=== PATIENT | male | born 1950 | race Caucasian/White ===

== ENCOUNTER 2016-08-23 07:02 | Emergency (ER) | payer MEDICARE, BC ==
[~2016-08-23] VITALS: Ht 165.1 cm; Wt 70.0 kg
[~2016-08-23 07:02] MED LIST: AMLODIPINE5 MG PO; DARVOCET N-100100 - OR; LIPITOR20 MG PO; LIPITOR40 MG OR; LOSARTAN POT100 MG PO; METOPROLOL SUCC50 MG PO; MICARDIS OR; NORCO1 TA1 PO; SERTRALINE HCL100 MG PO; XANAX0.25 MG PO
[2016-08-23 07:37] LABS: HEMATOCRIT 42.9 % (39.0-50.0); HEMOGLOBIN 14.6 g/dl (14.0-18.0); IMMATURE GRANULOCYTES 0.4 % (0.0-1.0); MEAN CELL VOLUME 93.3 fL CALC (80.0-100.0); MEAN CORPUSCULAR HGB 31.7 pG CALC (26.0-32.0); NEUT# 3.07 thou/uL (1.82-7.42); RED BLOOD COUNT 4.6 mill/uL (4.70-6.10); RED CELL DISTRI WIDTH 12.8 % (11.5-15.5)
[2016-08-23] MEDS ORDERED: METOPROLOL50 M1 PO (07:53)
[2016-08-23] MEDS ORDERED: AMLODIPINE5 MG PO (07:53)
[2016-08-23] MEDS ORDERED: LOSARTAN POT100 MG PO (07:53)
[2016-08-23 07:57] LABS: ALBUMIN 4.8 g/dL (3.2-5.0); ALKALINE PHOSPHATASE 75 u/l (38-126); ANION GAP 15 (6-22 (CALC)); BILIRUBIN, TOTAL 0.5 mg/dL (0.0-1.4); BUN 8 mg/dL (8-23); BUN/CREATININE RATIO 10 (12-20 (CALC)); CARBON DIOXIDE 28 mmol/l (22-30); CHLORIDE 104 mmol/l (95-108); CREATININE 0.8 mg/dL (0.7-1.3); GFR > 60 ML/MIN (>=60 (CALC)); GFR FOR AFR.AMER. > 60 ML/MIN (>=60 (CALC)); GLUCOSE 90 mg/dL (82-115); POTASSIUM 4.2 mmol/l (3.5-5.1); SGOT/AST 28 u/l (19-48); SGPT/ALT 40 u/l (11-66); SODIUM 143 mmol/l (137-146); TOTAL PROTEIN 7.9 g/dL (6.3-8.2)
[2016-08-23 08:09] LABS: MYOGLOBIN 34 ng/mL (0 - 121)
[2016-08-23 08:29] VITALS: BP 166/81
== END 2016-08-23 08:35 | disposition home or self-care (01) ==
LOC: ED 07:02
PROVIDERS: Emergency Medicine
DX: I16.0 Hypertensive urgency (principal); R42 Dizziness and giddiness; Z76.0 Encounter for issue of repeat prescription; R94.31 Abnormal electrocardiogram [ECG] [EKG]

== ENCOUNTER 2016-11-18 11:35 | Emergency (ER) | payer MEDICARE, BC ==
[~2016-11-18] VITALS: Ht 165.1 cm; Wt 68.2 kg
[~2016-11-18 11:35] MED LIST changes: +METOPROLOL50 M1 PO
[2016-11-18] MEDS ORDERED: AUGMENTIN875TAB PO (12:05)
[2016-11-18] MEDS ORDERED: MUPIROCIN2 % EX (12:05)
[2016-11-18 12:40] VITALS: BP 151/79
== END 2016-11-18 12:40 | disposition home or self-care (01) ==
LOC: ED 11:35
DX: S61.451A Open bite of right hand, initial encounter (principal); I10 Essential (primary) hypertension; W54.0XXA Bitten by dog, initial encounter; Y92.007 Garden or yard of unspecified non-institutional (private) residence as the place of occurrence of the external cause
CPT/HCPCS: J1335

== ENCOUNTER 2017-04-07 11:21 | Observation (INO) | payer MEDICARE, BC ==
[~2017-04-07] VITALS: Ht 165.1 cm; Wt 62.0 kg
[~2017-04-07 11:21] MED LIST changes: +AUGMENTIN875TAB PO; +MUPIROCIN2 % EX
--- NOTE | 2017-04-07 11:31 | NUR ---
AMB TO ROOM 9 WITH STEADY GAIT.
--- NOTE | 2017-04-07 12:20 | NUR ---
PATIENT AMBULATES TO BATHROOM WITH STEADY GAIT, URINE SAMPLE COLLECTED.
--- NOTE | 2017-04-07 12:50 | NUR ---
IV SITE STARTED, LABS DRAWN. TOLERATED WELL. INFORMED OF WAIT TIME. VERBAL UNDERSTANDING, CALL LIGHT GIVEN AND INFORMED TO CALL FOR ASSISTANCE. WILL CONTINUE TO MONITOR.
[2017-04-07 13:00] LABS: URINE BILIRUBIN - DIPSTICK NEGATIVE (NEGATIVE); URINE BLOOD DIPSTICK MODERATE (NEGATIVE); URINE COLOR YELLOW; URINE GLUCOSE - DIPSTICK NEGATIVE (NEGATIVE); URINE KETONE 15 mg/dL (NEGATIVE); URINE LEUK ESTERASE NEGATIVE (NEGATIVE); URINE NITRITE - DIPSTICK NEGATIVE (Negative); URINE PH 5.5 (4.5-8.0); URINE PROTEIN - DIPSTICK NEGATIVE (NEG-TRACE); URINE UROBILINOGEN - DIPSTICK 0.2 E.U./dL (0.2)
[2017-04-07 13:02] LABS: URINE CLARITY SL CLOUDY
--- NOTE | 2017-04-07 13:50 | NUR ---
PATIENT RESTING ON STRETCHER WITH RESPS EVEN AND UNLABORED. AWAITING LAB RESULTS.
[2017-04-07 13:56] LABS: HEMATOCRIT 37.6 % (39.0-50.0); HEMOGLOBIN 12.8 g/dl (14.0-18.0); IMMATURE GRANULOCYTES 0.6 % (0.0-1.0); MEAN CELL VOLUME 93.8 fL CALC (80.0-100.0); MEAN CORPUSCULAR HGB 31.9 pG CALC (26.0-32.0); NEUT# 8.62 thou/uL (1.82-7.42); RED BLOOD COUNT 4.01 mill/uL (4.70-6.10); RED CELL DISTRI WIDTH 12.9 % (11.5-15.5)
[2017-04-07 14:17] LABS: ALBUMIN 4.5 g/dL (3.2-5.0); ALKALINE PHOSPHATASE 94 u/l (38-126); ANION GAP 19 (6-22 (CALC)); BILIRUBIN, TOTAL 1.3 mg/dL (0.0-1.4); BUN 13 mg/dL (8-23); BUN/CREATININE RATIO 12 (12-20 (CALC)); CALCIUM 10.1 mg/dL (8.4-10.2); CARBON DIOXIDE 23 mmol/l (22-30); CHLORIDE 100 mmol/l (95-108); CREATININE 1.1 mg/dL (0.7-1.3); GFR > 60 ML/MIN (>=60 (CALC)); GFR FOR AFR.AMER. > 60 ML/MIN (>=60 (CALC)); GLUCOSE 88 mg/dL (82-115); POTASSIUM 3.8 mmol/l (3.5-5.1); SGOT/AST 22 u/l (19-48); SGPT/ALT 32 u/l (11-66); SODIUM 137 mmol/l (137-146); TOTAL PROTEIN 7.3 g/dL (6.3-8.2)
--- NOTE | 2017-04-07 14:50 | NUR ---
PATIENT RETURNS FROM CT IN STABLE CONDITION.
[2017-04-07] MEDS ORDERED: LOSARTAN POTASS50 MG PO (15:42)
[2017-04-07] MEDS ORDERED: METOPRL/HCTZ1 TA1 PO (15:43)
[2017-04-07] MEDS ORDERED: LIPITOR20 MG PO (15:44)
[2017-04-07] MEDS ORDERED: VIIBRYD20 MG PO (15:45)
[2017-04-07] MEDS ORDERED: LAMICTAL25 M2 PO (15:47)
--- NOTE | 2017-04-07 15:49 | NUR ---
PATIENT RESTING ON STRETCHER NO DISTRESS NOTED, WILL CONTINUE TO MONITOR.
--- NOTE | 2017-04-07 16:06 | NUR ---
MD AT BEDSIDE TO DISCUSS RESULTS.
--- NOTE | 2017-04-07 16:20 | NUR ---
PT TO NURSES DESK REQUESTING TO LEAVE. DIRECTED PT BACK TO ROOM TO SPEAK PRIVATELY. PT STATES " I HAVE A DOG AT HOME WHO I NEED TO FEED AND I DONT HAVE MY PHONE, AND NEED TO GET STUFF DONE." EXPLAINED TO PT THAT IF HE WISHED TO LEAVE HOSPITAL HE WOULD NEED TO SIGN OUT AGAINST MEDICAL ADVICE. PT STATES "WELL IM JUST GOING BACK HOME AND THEN I WILL COME BACK; BUT CAN I JUST BE TREATED AT HOME FOR THIS?" INFORMED PT THAT EDP SAW FIT THAT PT BE ADMITTED D/T CONDITION TO PROVIDE FURTHER TREATMENT IN HOSPITAL. PT VERBALIZED UNDERSTANDING. PORTABLE PHONE GIVEN TO PT TO MAKE PHONE CALL, WILL NOTIFY STAFF ONCE DECISION IS MADE. PT NURSE INFORMED.
[2017-04-07] MEDS ORDERED: XANAX0.25 MG PO (17:08)
[2017-04-07] MEDS ORDERED: NORCO1 TA1 PO (17:08)
--- NOTE | 2017-04-07 17:09 | NUR ---
ATTEMPT MADE TO CALL REPORT, SPOKE TO SHAKEEL. STATES "CAN THE NURSE CALL YOU BACK."
--- NOTE | 2017-04-07 17:28 | NUR ---
REPORT CALLED TO HIGINIO CASTILLO.
[2017-04-07 17:30] VITALS: BP 169/80
--- NOTE | 2017-04-07 17:30 | NUR ---
PT ARRIVED VIA STRETCHER ACCOMPANIED BY STAFF..IV SITE IS FREE FROM REDNESS OR EDEMA.
--- NOTE | 2017-04-07 17:35 | NUR ---
PATIENT TRANSPORTED TO [facility] VIA STRETCHER WITH IV ANTIBIOTIC AND IV FLUIDS INFUSING. BEDSIDE REPORT GIVEN TO HIGINIO CASTILLO.
--- NOTE | 2017-04-07 18:00 | NUR ---
ASSESSMENT IS COMPLETED: IV SITE IS FREE FROM REDNESS OR EDEMA. C/O ABD PAIN AND NOT EATING WELL IN 2 DAYS. THOUGHT IT WAS KIDNEY ISSUE FOUND OUT IT WAS ABD. BREATH SOUNDS ARE CLEAR, BILATERALLY, NO C/O SOB, HR IS REG, PULSES ARE STRONG X4. CONTINUE TO OBSERVE AND MONITOR.
--- NOTE | 2017-04-07 19:45 | NUR ---
BEDSIDE REPORT RECEIVED FROM HIGINIO CASTILLO. PT RESTING COMFORTABLY IN BED ALERT AND ORIEINTED. C/O LOWER ABDOMINAL ACHE; LORTAB REQUESTED AT THIS TIME. RESPIRATIONS EVEN AND UNLABORED ON ROOM AIR. PLAN OF CARE DISCUSSED. PT ENCOURAGED TO VERBALIZE CONCERNS. STATES UNDERSTANDING. SAFETY MEASURES IN PLACE. CALL LIGHT WITHIN REACH.
[2017-04-07 20:43] VITALS: BP 136/72
--- NOTE | 2017-04-08 00:30 | NUR ---
PT ASLEEP AT THIS TIME WITH NO SIGNS OF DISTRESS. RESPIRATIONS EVEN AND UNLABORED. PT IS INDEPENDENT IN ROOM. IV FLUIDS INFUSIGN WITHOUT DIFFICULTY. STATES THAT LORTAB WAS EFFECTIVE FOR LOWER ABDOMINAL PAIN. SAFETY MESURES IN PLACE. CALL LIGHT WITHIN REACH.
--- NOTE | 2017-04-08 02:28 | NUR ---
DRY DRESSING TO RIGHT LOWER BACK CHANGED; PT STATES THAT HE HAD A BASAL CELL REMOVAL ABOUT ONE WEEK AGO WHEN THE DRESSING WAS PLACED. SITE APPEARS HEALTHY AND APPROXIMATED WITH SUTURES IN PLACE. CLEANSED WITH NS AND TELFA AND TEGADERM IN PLACE NOW CDI.
--- NOTE | 2017-04-08 04:11 | NUR ---
PT ASLEEP AT THIS TIME WITH NO SIGNS OF DISTRESS NOTED. RESPIRATIONS EVEN AND UNLABORED. NO ACUTE CHANGES IN CONDITION. RECEIVED LORAB FOR LOWER ABDOMINAL PAIN WITH GOOD EFFECT. USES CALL LIGHT PRN. SAFETY MEASURES IN PLACE. CALL LIGHT WITHIN REACH.
[2017-04-08 05:08] VITALS: BP 125/73
--- NOTE | 2017-04-08 07:20 | NUR ---
REPORT RECEIVED FROM HIGINIO CASTELLANOS. PT SITTING UPRIGHT IN BED. DENIES PAIN AT THIS MOMENT. STATES PAIN IS SOMEWHAT RELIEVED BY CHANGING POSITIONS TO SITTING UP. REPORTING OF CONCERNS ENCOURAGED. PLAN OF CARE DISCUSSED. CALL LIGHT REVIEWED AND IN REACH. PT STATES UNDERSTANDING.
[2017-04-08 08:19] LABS: HEMOGLOBIN 11.6 g/dl (14.0-18.0); IMMATURE GRANULOCYTES 0.5 % (0.0-1.0); MEAN CELL VOLUME 93.7 fL CALC (80.0-100.0); MEAN CORPUSCULAR HGB CONC 34.1 g/L CALC (32.0-36.0); NEUT# 6.89 thou/uL (1.82-7.42); RED BLOOD COUNT 3.63 mill/uL (4.70-6.10)
[2017-04-08 08:23] VITALS: BP 121/63
[2017-04-08 08:25] VITALS: BP 121/63
[2017-04-08 08:25] LABS: ALBUMIN 3.6 g/dL (3.2-5.0); ALKALINE PHOSPHATASE 71 u/l (38-126); ANION GAP 14 (6-22 (CALC)); BILIRUBIN, TOTAL 0.9 mg/dL (0.0-1.4); BUN 10 mg/dL (8-23); BUN/CREATININE RATIO 11 (12-20 (CALC)); CALCIUM 9.6 mg/dL (8.4-10.2); CARBON DIOXIDE 25 mmol/l (22-30); CHLORIDE 102 mmol/l (95-108); CREATININE 0.9 mg/dL (0.7-1.3); GFR > 60 ML/MIN (>=60 (CALC)); GFR FOR AFR.AMER. > 60 ML/MIN (>=60 (CALC)); GLUCOSE 135 mg/dL (82-115); SGOT/AST 17 u/l (19-48); SGPT/ALT 22 u/l (11-66); SODIUM 137 mmol/l (137-146); TOTAL PROTEIN 6.1 g/dL (6.3-8.2)
--- NOTE | 2017-04-08 11:05 | NUR ---
EDUCATION PROVIDED TO PT ON DIVERTICULITIS, DISEASE PROCESS AND MAINTANENCE DIET FOR DIVERTICULOSIS. PT INSTRUCTED TO DIRECT QUESTIONS TO STAFF PRN. PT STATES UNDERSTANDING.
[2017-04-08] MEDS ORDERED: CIPROFLOXACN500 MG PO (12:50)
[2017-04-08] MEDS ORDERED: METRONIDAZOL500 MG PO (12:50)
== END 2017-04-08 13:31 | disposition home or self-care (01) ==
LOC: ED 11:21 → ED-I 15:54 → ED 16:42 → MS2 16:43
PROVIDERS: Emergency Medicine; ADMIT Internal Medicine; ATTEND Internal Medicine
DX: K57.32 Diverticulitis of large intestine without perforation or abscess without bleeding (principal); N40.1 Benign prostatic hyperplasia with lower urinary tract symptoms; R35.0 Frequency of micturition; R39.11 Hesitancy of micturition; I10 Essential (primary) hypertension; F32.9 Major depressive disorder, single episode, unspecified; M19.90 Unspecified osteoarthritis, unspecified site
CPT/HCPCS: Q9967

== ENCOUNTER 2018-04-03 14:05 | Emergency (ER) | payer MEDICARE, BC ==
[~2018-04-03] VITALS: Ht 165.1 cm; Wt 65.9 kg
[~2018-04-03 14:05] MED LIST changes: +CIPROFLOXACN500 MG PO; +LAMICTAL25 M2 PO; +LOSARTAN POTASS50 MG PO; +METOPRL/HCTZ1 TA1 PO; +METRONIDAZOL500 MG PO; +VIIBRYD20 MG PO
[2018-04-03 14:48] LABS: HEMATOCRIT 37.8 % (39.0-50.0); HEMOGLOBIN 12.6 g/dl (14.0-18.0); IMMATURE GRANULOCYTES 0.3 % (0.0-5.0); MEAN CELL VOLUME 94.3 fL CALC (80.0-100.0); MEAN CORPUSCULAR HGB 31.4 pG CALC (26.0-32.0); MEAN CORPUSCULAR HGB CONC 33.3 g/L CALC (32.0-36.0); NEUT# 5.31 thou/uL (1.82-7.42); RED BLOOD COUNT 4.01 mill/uL (4.70-6.10); RED CELL DISTRI WIDTH 12.5 % (11.5-15.5)
[2018-04-03 14:50] LABS: URINE BILIRUBIN - DIPSTICK NEGATIVE (NEGATIVE); URINE BLOOD DIPSTICK TRACE-INTACT (NEGATIVE); URINE COLOR YELLOW; URINE GLUCOSE - DIPSTICK NEGATIVE (NEGATIVE); URINE KETONE NEGATIVE (NEGATIVE); URINE LEUK ESTERASE NEGATIVE (NEGATIVE); URINE NITRITE - DIPSTICK NEGATIVE (Negative); URINE PROTEIN - DIPSTICK NEGATIVE (NEG-TRACE); URINE UROBILINOGEN - DIPSTICK 0.2 E.U./dL (0.2)
[2018-04-03 14:57] LABS: ALBUMIN 4.7 g/dL (3.2-5.0); ALKALINE PHOSPHATASE 62 u/l (38-126); ANION GAP 17 (6-22 (CALC)); BILIRUBIN, TOTAL 0.8 mg/dL (0.0-1.4); BUN 21 mg/dL (8-23); BUN/CREATININE RATIO 18 (12-20 (CALC)); CARBON DIOXIDE 27 mmol/l (22-30); CHLORIDE 93 mmol/l (95-108); CREATININE 1.2 mg/dL (0.7-1.3); GFR 60 ML/MIN (>=60 (CALC)); GFR FOR AFR.AMER. > 60 ML/MIN (>=60 (CALC)); LIPASE 245 u/l (23-300); POTASSIUM 3.9 mmol/l (3.5-5.1); SGOT/AST 31 u/l (19-48); SODIUM 133 mmol/l (137-146); TOTAL PROTEIN 7.3 g/dL (6.3-8.2)
[2018-04-03 15:42] VITALS: BP 188/74
== END 2018-04-03 15:52 | disposition home or self-care (01) ==
LOC: ED 14:05
PROVIDERS: Family Medicine
DX: R10.31 Right lower quadrant pain (principal); R10.32 Left lower quadrant pain; Z87.19 Personal history of other diseases of the digestive system
CPT/HCPCS: Q9967

== ENCOUNTER 2018-04-12 17:42 | Emergency (ER) | payer MEDICARE, BC ==
[~2018-04-12] VITALS: Ht 165.1 cm; Wt 65.9 kg
[2018-04-12 18:47] VITALS: BP 160/82
== END 2018-04-12 18:48 | disposition home or self-care (01) ==
LOC: ED 17:42
PROC: 0HQLXZZ Repair Left Lower Leg Skin, External Approach (ICD-10-PCS; principal; 2018-04-12)
DX: S81.812A Laceration without foreign body, left lower leg, initial encounter (principal); W25.XXXA Contact with sharp glass, initial encounter; Y93.E9 Activity, other interior property and clothing maintenance; Y92.009 Unspecified place in unspecified non-institutional (private) residence as the place of occurrence of the external cause

== ENCOUNTER → 2018-05-28 | Outpatient (REF) | payer MEDICARE, BC ==
[2018-05-28 14:05] LABS: ANION GAP 15 (6-22 (CALC)); BUN 21 mg/dL (8-23); BUN/CREATININE RATIO 18 (12-20 (CALC)); CARBON DIOXIDE 28 mmol/l (22-30); CHLORIDE 98 mmol/l (95-108); CREATININE 1.1 mg/dL (0.7-1.3); GFR > 60 ML/MIN (>=60 (CALC)); GFR FOR AFR.AMER. > 60 ML/MIN (>=60 (CALC)); POTASSIUM 4.3 mmol/l (3.5-5.1); SODIUM 137 mmol/l (137-146)
== END | disposition home or self-care (01) ==
LOC: LAB 12:32
PROVIDERS: ATTEND Nurse Practitioner Family
DX: N40.1 Benign prostatic hyperplasia with lower urinary tract symptoms (principal); Z12.5 Encounter for screening for malignant neoplasm of prostate

== ENCOUNTER 2018-09-11 11:43 | Emergency (ER) | payer MEDICARE, BC ==
[~2018-09-11] VITALS: Ht 165.1 cm; Wt 67.0 kg
[2018-09-11 12:15] LABS: HEMATOCRIT 35.2 % (39.0-50.0); HEMOGLOBIN 11.8 g/dl (14.0-18.0); IMMATURE GRANULOCYTES 0.5 % (0.0-5.0); MEAN CELL VOLUME 92.4 fL CALC (80.0-100.0); MEAN CORPUSCULAR HGB CONC 33.5 g/L CALC (32.0-36.0); NEUT# 3.92 thou/uL (1.82-7.42); RED BLOOD COUNT 3.81 mill/uL (4.70-6.10); RED CELL DISTRI WIDTH 12.7 % (11.5-15.5)
[2018-09-11 12:33] LABS: ALBUMIN 4.5 g/dL (3.2-5.0); ALKALINE PHOSPHATASE 72 u/l (38-126); ANION GAP 15 (6-22 (CALC)); BILIRUBIN, TOTAL 0.6 mg/dL (0.0-1.4); BUN 17 mg/dL (8-23); BUN/CREATININE RATIO 15 (12-20 (CALC)); CARBON DIOXIDE 26 mmol/l (22-30); CHLORIDE 97 mmol/l (95-108); CREATININE 1.1 mg/dL (0.7-1.3); GFR > 60 ML/MIN (>=60 (CALC)); GFR FOR AFR.AMER. > 60 ML/MIN (>=60 (CALC)); LIPASE 124 u/l (23-300); POTASSIUM 4.1 mmol/l (3.5-5.1); SGOT/AST 27 u/l (19-48); SODIUM 134 mmol/l (137-146); TOTAL PROTEIN 7.1 g/dL (6.3-8.2)
[2018-09-11 13:43] LABS: URINE BILIRUBIN - DIPSTICK NEGATIVE (NEGATIVE); URINE BLOOD DIPSTICK NEGATIVE (NEGATIVE); URINE COLOR YELLOW; URINE GLUCOSE - DIPSTICK NEGATIVE (NEGATIVE); URINE KETONE NEGATIVE (NEGATIVE); URINE LEUK ESTERASE NEGATIVE (NEGATIVE); URINE NITRITE - DIPSTICK NEGATIVE (Negative); URINE PROTEIN - DIPSTICK NEGATIVE (NEG-TRACE); URINE SPECIFIC GRAVITY <=1.005; URINE UROBILINOGEN - DIPSTICK 0.2 E.U./dL (0.2)
[2018-09-11 13:47] LABS: BARBITURATES NEGATIVE (NEGATIVE); COCAINE NEGATIVE (NEGATIVE); METHADONE NEGATIVE (NEGATIVE); OXCYCODONE NEGATIVE (NEGATIVE); TETRAHYDROCANNABIONOL NEGATIVE (NEGATIVE); TRICYLIC ANTIDEPRESSANTS NEGATIVE (NEGATIVE)
[2018-09-11] MEDS ORDERED: METOPROL TAR25 MG PO (15:56)
[2018-09-11] MEDS ORDERED: TAMSULOSIN HCL0.4 MG PO (15:57)
[2018-09-11] MEDS ORDERED: LAMICTAL200 MG PO (16:02)
[2018-09-11] MEDS ORDERED: NORCO1 TA2 PO (16:02)
[2018-09-11] MEDS ORDERED: PROVENTIL HFA IN (16:24)
[2018-09-11 16:55] VITALS: BP 160/76
== END 2018-09-11 16:55 | disposition home or self-care (01) ==
LOC: ED 11:43
DX: R07.89 Other chest pain (principal); I10 Essential (primary) hypertension; R06.02 Shortness of breath
CPT/HCPCS: Q9967

== ENCOUNTER 2018-12-03 18:24 | Observation (INO) | payer MEDICARE, BC ==
[~2018-12-03] VITALS: Ht 165.1 cm; Wt 65.0 kg
[~2018-12-03 18:24] MED LIST changes: +LAMICTAL200 MG PO; +METOPROL TAR25 MG PO; +NORCO1 TA2 PO; +PROVENTIL HFA IN; +TAMSULOSIN HCL0.4 MG PO
[2018-12-03 19:15] LABS: HEMATOCRIT 37.2 % (39.0-50.0); HEMOGLOBIN 12.5 g/dl (14.0-18.0); IMMATURE GRANULOCYTES 0.3 % (0.0-5.0); MEAN CELL VOLUME 93.5 fL CALC (80.0-100.0); MEAN CORPUSCULAR HGB 31.4 pG CALC (26.0-32.0); MEAN CORPUSCULAR HGB CONC 33.6 g/L CALC (32.0-36.0); NEUT# 4.11 thou/uL (1.82-7.42); RED BLOOD COUNT 3.98 mill/uL (4.70-6.10); RED CELL DISTRI WIDTH 12.8 % (11.5-15.5)
[2018-12-03 19:35] LABS: ALBUMIN 4.7 g/dL (3.2-5.0); ALKALINE PHOSPHATASE 83 u/l (38-126); ANION GAP 18 (6-22 (CALC)); BUN 16 mg/dL (8-23); BUN/CREATININE RATIO 12 (12-20 (CALC)); CARBON DIOXIDE 24 mmol/l (22-30); CHLORIDE 100 mmol/l (95-108); CREATININE 1.3 mg/dL (0.7-1.3); GFR 55 ML/MIN (>=60 (CALC)); GFR FOR AFR.AMER. > 60 ML/MIN (>=60 (CALC)); POTASSIUM 3.5 mmol/l (3.5-5.1); SGOT/AST 29 u/l (19-48); SODIUM 138 mmol/l (137-146); TOTAL PROTEIN 7.8 g/dL (6.3-8.2)
[2018-12-03 19:37] LABS: BILIRUBIN, TOTAL 0.3 mg/dL (0.0-1.4)
[2018-12-03 19:45] LABS: MYOGLOBIN 73 ng/mL (0 - 121)
[2018-12-03 22:15] VITALS: BP 128/77
[2018-12-03 22:32] LABS: URINE BILIRUBIN - DIPSTICK NEGATIVE (NEGATIVE); URINE BLOOD DIPSTICK NEGATIVE (NEGATIVE); URINE COLOR YELLOW; URINE GLUCOSE - DIPSTICK NEGATIVE (NEGATIVE); URINE KETONE NEGATIVE (NEGATIVE); URINE LEUK ESTERASE NEGATIVE (NEGATIVE); URINE NITRITE - DIPSTICK NEGATIVE (Negative); URINE PROTEIN - DIPSTICK NEGATIVE (NEG-TRACE); URINE SPECIFIC GRAVITY <=1.005; URINE UROBILINOGEN - DIPSTICK 0.2 E.U./dL (0.2)
[2018-12-04 01:24] VITALS: BP 96/60
[2018-12-04 04:34] VITALS: BP 100/61
[2018-12-04 07:37] VITALS: BP 131/63
[2018-12-04 10:40] VITALS: BP 114/66
== END 2018-12-04 14:58 | disposition home or self-care (01) ==
LOC: ED 18:24 → ED-I 20:33 → ED 21:00 → MS2 21:01
PROVIDERS: Emergency Medicine; ADMIT Internal Medicine; ATTEND Internal Medicine
DX: R55 Syncope and collapse (principal); R00.2 Palpitations; R00.0 Tachycardia, unspecified; I95.9 Hypotension, unspecified; R79.89 Other specified abnormal findings of blood chemistry; I10 Essential (primary) hypertension; F41.9 Anxiety disorder, unspecified; F32.9 Major depressive disorder, single episode, unspecified; M19.90 Unspecified osteoarthritis, unspecified site; K57.30 Diverticulosis of large intestine without perforation or abscess without bleeding; E78.5 Hyperlipidemia, unspecified; T43.206A Underdosing of unspecified antidepressants, initial encounter; Z91.128 Patient's intentional underdosing of medication regimen for other reason; Z87.891 Personal history of nicotine dependence

== ENCOUNTER 2019-07-30 12:09 | Emergency (ER) | payer MEDICARE, BC ==
[2019-07-30 12:54] LABS: HEMATOCRIT 38.1 % (39.0-50.0); HEMOGLOBIN 12.6 g/dl (14.0-18.0); IMMATURE GRANULOCYTES 0.2 % (0.0-5.0); MEAN CELL VOLUME 94.3 fL CALC (80.0-100.0); MEAN CORPUSCULAR HGB 31.2 pG CALC (26.0-32.0); MEAN CORPUSCULAR HGB CONC 33.1 g/dL CAL (32.0-36.0); NEUT# 3.97 thou/uL (1.82-7.42); RED BLOOD COUNT 4.04 mill/uL (4.70-6.10); RED CELL DISTRI WIDTH 12.7 % (11.5-15.5)
[2019-07-30 13:14] LABS: MAGNESIUM 1.7 mg/dL (1.6-2.3)
[2019-07-30 13:15] LABS: ALBUMIN 4.5 g/dL (3.2-5.0); ALKALINE PHOSPHATASE 85 u/l (38-126); ANION GAP 11 (6-22 (CALC)); BILIRUBIN, TOTAL 0.6 mg/dL (0.0-1.4); BUN 18 mg/dL (8-23); BUN/CREATININE RATIO 15 (12-20 (CALC)); CARBON DIOXIDE 27 mmol/l (22-30); CHLORIDE 102 mmol/l (95-108); CREATININE 1.2 mg/dL (0.7-1.3); GFR 60 ML/MIN (>=60 (CALC)); GFR FOR AFR.AMER. > 60 ML/MIN (>=60 (CALC)); POTASSIUM 3.9 mmol/l (3.5-5.1); SGOT/AST 28 u/l (19-48); SODIUM 135 mmol/l (137-146); TOTAL PROTEIN 7.7 g/dL (6.3-8.2)
[2019-07-30 13:52] VITALS: BP 114/77
--- NOTE | 2019-08-02 10:05 | NUR ---
Notified patient of negative Covid results.
== END 2019-07-30 14:54 | disposition home or self-care (01) ==
LOC: ED 12:09
PROVIDERS: Family Medicine
DX: I47.1 Supraventricular tachycardia (principal); I10 Essential (primary) hypertension; Z20.828 Contact with and (suspected) exposure to other viral communicable diseases
CPT/HCPCS: J0153

== ENCOUNTER 2020-09-10 07:11 | Day surgery (SDC) | payer MEDICARE, BC ==
[~2020-09-10] VITALS: Ht 165.1 cm; Wt 74.8 kg
[~2020-09-10 07:11] MED LIST changes: +HYDROCODONE/ACE1 TAB PO; +MELOXICAM15 MG PO; +OMEPRAZOLE DR40 MG PO
[2020-09-10 10:16] VITALS: BP 139/76
[2020-10-13] MEDS ORDERED: LORTAB 1010 MG PO ×3 (07:59→08:01)
== END 2020-09-10 09:40 | disposition home or self-care (01) ==
LOC: ORM 07:11 → PO 07:11 → ORM 09:15
PROVIDERS: ATTEND Surgery
PROC: 0DJD8ZZ Inspection of Lower Intestinal Tract, Via Natural or Artificial Opening Endoscopic (ICD-10-PCS; principal; 2020-09-10)
DX: Z12.11 Encounter for screening for malignant neoplasm of colon (principal); K57.30 Diverticulosis of large intestine without perforation or abscess without bleeding; K64.8 Other hemorrhoids; I10 Essential (primary) hypertension; E78.5 Hyperlipidemia, unspecified; Z86.010 Personal history of colon polyps

== ENCOUNTER 2021-04-15 20:43 | Emergency (ER) | payer MEDICARE, BC ==
[~2021-04-15] VITALS: Ht 165.1 cm; Wt 72.0 kg
[~2021-04-15 20:43] MED LIST changes: +LORTAB 1010 MG PO
[2021-04-15] MEDS ORDERED: CLARITIN10 M2 PO (22:37)
[2021-04-15] MEDS ORDERED: FLONASE AL50 MCG/ACT (22:37)
[2021-04-15] MEDS ORDERED: KEFLEX500 MG PO (22:37)
[2021-04-15 23:05] VITALS: BP 129/58
== END 2021-04-15 23:05 | disposition home or self-care (01) ==
LOC: ED 20:43
DX: J06.9 Acute upper respiratory infection, unspecified (principal); J32.9 Chronic sinusitis, unspecified; I10 Essential (primary) hypertension; E78.5 Hyperlipidemia, unspecified; Z20.822 Contact with and (suspected) exposure to COVID-19

== ENCOUNTER 2021-12-13 18:45 | Observation (INO) | payer MEDICARE, BC ==
[~2021-12-13] VITALS: Ht 165.1 cm; Wt 68.0 kg
[~2021-12-13 18:45] MED LIST changes: +CHLORTHALIDONE25 MG PO; +CLARITIN10 M2 PO; +FLONASE AL50 MCG/ACT; +HYDROCODONE BIT1 TA7 PO; +KEFLEX500 MG PO; +LAMICTAL150 M1 PO; +LIPITOR40 M1 PO; +REXULTI1 MG PO; +SLOW-MAG PO; +VIIBRYD40 MG PO
[2021-12-13 19:34] LABS: HEMATOCRIT 38.1 % (39.0-50.0); MEAN CORPUSCULAR HGB 31.7 pG CALC (26.0-32.0); MEAN CORPUSCULAR HGB CONC 34.1 g/dL CAL (32.0-36.0); NEUT# 3.17 thou/uL (1.82-7.42); RED BLOOD COUNT 4.1 mill/uL (4.70-6.10); RED CELL DISTRI WIDTH 13.4 % (11.5-15.5)
[2021-12-13 19:35] LABS: MEAN CELL VOLUME 92.9 fL CALC (80.0-100.0)
[2021-12-13 19:57] LABS: ALBUMIN 4.6 g/dL (3.2-5.0); ALKALINE PHOSPHATASE 95 u/l (38-126); ANION GAP 19 (6-22 (CALC)); BILIRUBIN, TOTAL 0.5 mg/dL (0.0-1.4); BUN 10 mg/dL (8-23); BUN/CREATININE RATIO 9 (12-20 (CALC)); CARBON DIOXIDE 25 mmol/l (22-30); CHLORIDE 90 mmol/l (95-108); CREATININE 1.1 mg/dL (0.7-1.3); GFR FOR AFR.AMER. > 60 ML/MIN (>=60 (CALC)); GFR OTHER RACES > 60 ML/MIN (>=60 (CALC)); POTASSIUM 2.5 mmol/l (3.5-5.1); SGOT/AST 41 u/l (19-48); SODIUM 131 mmol/l (137-146); TOTAL PROTEIN 7.7 g/dL (6.3-8.2)
--- NOTE | 2021-12-13 20:17 | NUR ---
PT RESTING COMFORTABLY, DEIES PAIN; NSR IN 70S S/P ADENOSINE; VSS
[2021-12-13 20:28] LABS: TSH, 3RD GENERATION 1.48 uIU/mL (0.47 - 4.68)
[2021-12-13 22:23] LABS: URINE BILIRUBIN - DIPSTICK NEGATIVE (NEGATIVE); URINE BLOOD DIPSTICK TRACE-INTACT (NEGATIVE); URINE COLOR YELLOW; URINE GLUCOSE - DIPSTICK NEGATIVE (NEGATIVE); URINE KETONE NEGATIVE (NEGATIVE); URINE LEUK ESTERASE NEGATIVE (NEGATIVE); URINE PROTEIN - DIPSTICK NEGATIVE (NEG-TRACE); URINE UROBILINOGEN - DIPSTICK 0.2 E.U./dL (0.2)
[2021-12-13 22:26] LABS: URINE NITRITE - DIPSTICK NEGATIVE (Negative)
--- NOTE | 2021-12-13 22:46 | NUR ---
PT ADMITTED TO 281, REPORT CALLED TO LOIS VERA. PT NSR, NO ECTOPY, NO COMPLAINTS OF PAIN,SOB,PALPITATIONS,OR DIZZINESS; VSS.
[2021-12-13 23:44] VITALS: BP 173/82
--- NOTE | 2021-12-14 02:03 | NUR ---
RECIEVED PT FROM ED. PT ALERT AND ORIENTATED X3. BREATHING STABLE. TELE MONITOR N=IN PLACE. IV SITE PATENT, WITH IVF RUNNING. SKIN CLEAN, DRY AND INTACT. PT ORIENTATED TO ROOM, EDUCATED ON FALL PRECAUTIONS AND PT VERBALIZED UNDERSTANDING. CALL LIGHT IN REACH. ALL SAFETY PRECAUTIONS IN PLACE AT THIS TIME.
[2021-12-14 04:07] VITALS: BP 148/81
--- NOTE | 2021-12-14 05:15 | NUR ---
PT SLEEPING IN BED, BREATHING REMAINS THE SAME. PT EASILY AROUSIBLE, DENIES ANY NEEDS AT THIS TIME. TELE IN PLACE, MONITORED BY ED. IVF RUNNING PER EMAR. PT DENIES ANY NEEDS AT THIS TIME. CALL LIGHT IN REACH. ALL SAFETY PRECAUTIONS IN PLACE AT THIS TIME.
[2021-12-14 06:17] LABS: BUN 8 mg/dL (8-23); BUN/CREATININE RATIO 9 (12-20 (CALC)); CARBON DIOXIDE 25 mmol/l (22-30); CHLORIDE 97 mmol/l (95-108); CREATININE 0.9 mg/dL (0.7-1.3); GFR FOR AFR.AMER. > 60 ML/MIN (>=60 (CALC)); GFR OTHER RACES > 60 ML/MIN (>=60 (CALC)); SODIUM 134 mmol/l (137-146)
[2021-12-14 06:18] LABS: ANION GAP 16 (6-22 (CALC)); MAGNESIUM 3.4 mg/dL (1.6-2.3); POTASSIUM 3.7 mmol/l (3.5-5.1)
[2021-12-14 07:00] VITALS: BP 159/78
[2021-12-14 11:00] VITALS: BP 155/56
[2021-12-14] MEDS ORDERED: METOPROLOL SUCC50 MG PO (13:11)
[2021-12-14] MEDS ORDERED: CHLORTHALIDONE25 MG PO (13:12)
[2021-12-14] MEDS ORDERED: POT CHLORIDE10 ME5 PO (13:12)
[2021-12-14] MEDS ORDERED: MAGOX 400400 MG PO (13:13)
[2021-12-14 15:00] VITALS: BP 136/68
== END 2021-12-14 17:15 | disposition home or self-care (01) ==
LOC: ED 18:45 → ED-I 20:59 → ED 21:13 → MS2 21:13
PROVIDERS: Emergency Medicine; Family Medicine; ADMIT Internal Medicine; ATTEND Internal Medicine
DX: I47.1 Supraventricular tachycardia (principal); E87.6 Hypokalemia; E83.42 Hypomagnesemia; I10 Essential (primary) hypertension; I25.10 Atherosclerotic heart disease of native coronary artery without angina pectoris; E78.5 Hyperlipidemia, unspecified; F41.9 Anxiety disorder, unspecified; N40.0 Benign prostatic hyperplasia without lower urinary tract symptoms; T50.916A Underdosing of multiple unspecified drugs, medicaments and biological substances, initial encounter; Z91.138 Patient's unintentional underdosing of medication regimen for other reason; Z95.0 Presence of cardiac pacemaker; Z20.822 Contact with and (suspected) exposure to COVID-19
CPT/HCPCS: J3475

== ENCOUNTER 2022-02-27 05:45 | Observation (INO) | payer MEDICARE, BC ==
[2022-02-27] VITALS (16 sets, daily range): BP systolic 100–167; BP diastolic 56–102
[~2022-02-27] VITALS: Ht 165.1 cm; Wt 65.2 kg
[~2022-02-27 05:45] MED LIST changes: +MAGOX 400400 MG PO; +POT CHLORIDE10 ME5 PO
--- NOTE | 2022-02-27 05:45 | NUR ---
PT TO ROOM 6 FOR TRIAGE.
[2022-02-27 06:38] LABS: HEMATOCRIT 38.5 % (39.0-50.0); HEMOGLOBIN 13.8 g/dl (14.0-18.0); IMMATURE GRANULOCYTES 0.3 % (0.0-5.0); MEAN CELL VOLUME 90.4 fL CALC (80.0-100.0); MEAN CORPUSCULAR HGB 32.4 pG CALC (26.0-32.0); MEAN CORPUSCULAR HGB CONC 35.8 g/dL CAL (32.0-36.0); NEUT# 4.37 thou/uL (1.82-7.42); RED BLOOD COUNT 4.26 mill/uL (4.70-6.10); RED CELL DISTRI WIDTH 12.5 % (11.5-15.5)
[2022-02-27 06:49] LABS: ALBUMIN 4.3 g/dL (3.2-5.0); ALKALINE PHOSPHATASE 74 u/l (38-126); BUN 10 mg/dL (8-23); BUN/CREATININE RATIO 13 (12-20 (CALC)); CARBON DIOXIDE 27 mmol/l (22-30); CHLORIDE 87 mmol/l (95-108); CREATININE 0.8 mg/dL (0.7-1.3); GFR FOR AFR.AMER. > 60 ML/MIN (>=60 (CALC)); GFR OTHER RACES > 60 ML/MIN (>=60 (CALC)); LIPASE 124 u/l (23-300); SGOT/AST 35 u/l (19-48); TOTAL PROTEIN 7.3 g/dL (6.3-8.2)
[2022-02-27 06:55] LABS: ANION GAP 12 (6-22 (CALC)); BILIRUBIN, TOTAL 1.2 mg/dL (0.0-1.4); POTASSIUM 2.9 mmol/l (3.5-5.1); SODIUM 123 mmol/l (137-146)
--- NOTE | 2022-02-27 07:05 | NUR ---
RECEIVED REPORT FROM NIGHTSHIFT RN AND ASSUMED CARE OF PATIENT.
--- NOTE | 2022-02-27 08:10 | NUR ---
Reassessment of patient completed. No distress noted.
--- NOTE | 2022-02-27 09:07 | NUR ---
Reassessment of patient completed. PROVIDER AWARE OF PATIENT STATUS.
--- NOTE | 2022-02-27 10:05 | NUR ---
Reassessment of patient completed. PROVIDER AWARE OF PATIENT STATUS.
--- NOTE | 2022-02-27 10:42 | NUR ---
Admission Note Report Given to: TIANA Transported by: N Wheelchair Y Stretcher Transported with: Y Nurse Transporter Y Patent IV O2 Y Metal Machinist Location: ICU Y MS2 PATIENT TRANSPORTED TO ROOM 275 RESTLESS BUT IN NO ACUTE DISTRESS. ASSISTED TO BED. RN VERBALIZED UNDERSTANDING.
[2022-02-27] MEDS ORDERED: OXYCOD-APAP1 TA1 PO (11:08)
--- NOTE | 2022-02-27 12:37 | NUR ---
PT RESTING IN HIGH FOWLERS POSITION. A/OX3 ASSESSMENT AND VS COMPLETED. HEART RHYHTM ON TELE. RESPIRATIONS ON ROOM AIR. PT IV SITES NOTED TO LAC AND RAC 20G. PT STATED NEED OF PAIN PILL. AND DIET IS POSSIBLE PROVIDER INFORMED. ALL SAFETY PRECAUTIONS IN PLACE.
--- NOTE | 2022-02-27 12:50 | NUR ---
PT RESTING IN LOW FOWLERS POSITION. PT MEDICATED FOR PAIN.
--- NOTE | 2022-02-27 16:38 | NUR ---
PT DENIES ADDITIONAL NEEDS AT THE TIME ALL SAFETY PRECAUTIONS IN PLACE.
--- NOTE | 2022-02-27 19:00 | NUR ---
BEDSIDE SHIFT REPORT COMPLETE. PATIENT RESTING QUIETLY IN BED.
--- NOTE | 2022-02-27 21:20 | NUR ---
PATIENT ALERT AND ORIENTED. SITTING UP IN BED WATCHING TV. ASSESSMENT COMPLETE. C/O BLE PAIN, LORTAB ADMINISTERED. NO FURTHER CONCERNS EXPRESSED. CALL LIGHT WITHIN REACH INSTRUCTED TO CALL FOR ASSISTANCE.
[2022-02-28] VITALS: BP 148/87
--- NOTE | 2022-02-28 00:58 | NUR ---
RESTING QUIETLY EYES CLOSED. NO DISTRESS NOTED. CALL LIGHT WITHIN REACH.
[2022-02-28 03:44] VITALS: BP 130/82
[2022-02-28 04:00] VITALS: BP 130/82
[2022-02-28 05:20] LABS: HEMATOCRIT 38.2 % (39.0-50.0); HEMOGLOBIN 13.5 g/dl (14.0-18.0); IMMATURE GRANULOCYTES 0.3 % (0.0-5.0); MEAN CELL VOLUME 92.9 fL CALC (80.0-100.0); MEAN CORPUSCULAR HGB 32.8 pG CALC (26.0-32.0); MEAN CORPUSCULAR HGB CONC 35.3 g/dL CAL (32.0-36.0); NEUT# 4.6 thou/uL (1.82-7.42); RED BLOOD COUNT 4.11 mill/uL (4.70-6.10); RED CELL DISTRI WIDTH 12.7 % (11.5-15.5)
[2022-02-28 05:41] LABS: ALBUMIN 3.5 g/dL (3.2-5.0); ALKALINE PHOSPHATASE 58 u/l (38-126); BILIRUBIN, TOTAL 1.3 mg/dL (0.0-1.4); BUN 12 mg/dL (8-23); BUN/CREATININE RATIO 13 (12-20 (CALC)); CARBON DIOXIDE 24 mmol/l (22-30); CREATININE 0.9 mg/dL (0.7-1.3); GFR FOR AFR.AMER. > 60 ML/MIN (>=60 (CALC)); GFR OTHER RACES > 60 ML/MIN (>=60 (CALC)); SGOT/AST 33 u/l (19-48); TOTAL PROTEIN 6.1 g/dL (6.3-8.2)
[2022-02-28 05:45] LABS: ANION GAP 12 (6-22 (CALC)); CHLORIDE 101 mmol/l (95-108); POTASSIUM 3.5 mmol/l (3.5-5.1); SODIUM 133 mmol/l (137-146)
[2022-02-28 06:16] VITALS: BP 125/77
--- NOTE | 2022-02-28 07:00 | NUR ---
RECEIVE REPORT FROM KEARA ABREU.
--- NOTE | 2022-02-28 08:00 | NUR ---
PATIENT ALERT AND ORIENTED X3. RESTING STABLE IN BED AT THIS TIME. ASSESSMENTE HEAD-TO TOE COMPLETE. PATIENT IS EDUCATED ABOUD MEDICATIONS, PAIN MANAGEMENT AND NURSING PLAN FOR TODAY. PATIENT REFER UNSERSTAND. SAFETY AND FALL PRECAUTIONS IN PLACE. CALL LIGHT WITHIN IN REACH. BEFORE HE LEFT OR THE
[2022-02-28 10:14] VITALS: BP 140/66
[2022-02-28] MEDS ORDERED: ONDANSETRON4 MG PO (11:02)
[2022-02-28] MEDS ORDERED: METRONIDAZOLE500 MG PO (11:02)
[2022-02-28] MEDS ORDERED: CIPROFLOXACN500 MG PO (11:02)
== END 2022-02-28 11:40 | disposition home or self-care (01) ==
LOC: ED 05:45 → ED-I 08:40 → ED 08:57 → MS2 08:58
PROVIDERS: Family Medicine; ADMIT Internal Medicine; ATTEND Internal Medicine
DX: K57.32 Diverticulitis of large intestine without perforation or abscess without bleeding (principal); I10 Essential (primary) hypertension; E87.6 Hypokalemia; E87.1 Hypo-osmolality and hyponatremia; F41.9 Anxiety disorder, unspecified; N40.0 Benign prostatic hyperplasia without lower urinary tract symptoms; E78.5 Hyperlipidemia, unspecified; Z95.0 Presence of cardiac pacemaker; Z20.822 Contact with and (suspected) exposure to COVID-19
CPT/HCPCS: J3475; Q9967

== ENCOUNTER 2024-03-18 07:43 | Day surgery (SDC) | payer MEDICARE ==
[~2024-03-18] VITALS: Ht 167.6 cm; Wt 71.7 kg
[~2024-03-18 07:43] MED LIST changes: +METRONIDAZOLE500 MG PO; +ONDANSETRON4 MG PO; +OXYCOD-APAP1 TA1 PO; +REXULTI0.5 MG PO; +TOPROL XL25 M1 PO; +ZOFRAN4 MG/TAB PO
[2024-03-18] MEDS ORDERED: FAMOTIDINE 10MG/ML 2ML SDV IV ONE (08:02)
[2024-03-18] MEDS ORDERED: LACTATED RINGER'S 1,000 ML IV ONE (08:02)
[2024-03-18 09:45] VITALS: BP 165/103
[2024-03-18] MEDS ORDERED: PROPOFOL 200 MG/20 ML VIAL IV ONE (15:44)
[2024-03-18] MEDS ORDERED: LIDOCAINE HCL 2% 2ML SDV IV ONE (15:44)
== END 2024-03-18 09:50 | disposition home or self-care (01) ==
LOC: ORM 07:43
PROVIDERS: ATTEND Surgery
PROC: 0DB98ZX Excision of Duodenum, Via Natural or Artificial Opening Endoscopic, Diagnostic (ICD-10-PCS; principal; 2024-03-18)
PROC: 0DB68ZX Excision of Stomach, Via Natural or Artificial Opening Endoscopic, Diagnostic (ICD-10-PCS; 2024-03-18)
PROC: 0DB48ZX Excision of Esophagogastric Junction, Via Natural or Artificial Opening Endoscopic, Diagnostic (ICD-10-PCS; 2024-03-18)
DX: K29.80 Duodenitis without bleeding (principal); K29.50 Unspecified chronic gastritis without bleeding; K21.00 Gastro-esophageal reflux disease with esophagitis, without bleeding; I10 Essential (primary) hypertension; E78.5 Hyperlipidemia, unspecified; F32.A Depression, unspecified; F41.9 Anxiety disorder, unspecified; Z95.0 Presence of cardiac pacemaker; Z86.0100 Personal history of colon polyps, unspecified

== ENCOUNTER 2024-03-22 18:06 | Emergency (ER) | payer MEDICARE ==
[~2024-03-22] VITALS: Ht 167.6 cm; Wt 72.0 kg
[2024-03-22] VITALS (16 sets, daily range): BP systolic 126–164; BP diastolic 86–113
[2024-03-22 19:50] LABS: BASO% 0.3 % (0-3); EOS% 1.7 % (0-8); HEMATOCRIT 41.3 % (39.0-50.0); HEMOGLOBIN 13.9 g/dl (14.0-18.0); IMMATURE GRANULOCYTES 0.2 % (0.0-5.0); LYMPH% 15.1 % (15-41); MEAN CELL VOLUME 95.4 fL CALC (80.0-100.0); MEAN CORPUSCULAR HGB 32.1 pG CALC (26.0-32.0); MEAN CORPUSCULAR HGB CONC 33.7 g/dL CAL (32.0-36.0); MONO% 9.1 % (2-13); NEUT# 4.8 thou/uL (1.82-7.42); NEUT% 73.6 % (42-76); RED BLOOD COUNT 4.33 mill/uL (4.70-6.10); RED CELL DISTRI WIDTH 12.6 % (11.5-15.5)
[2024-03-22 19:55] LABS: ALBUMIN 4.6 g/dL (3.2-5.0); ALKALINE PHOSPHATASE 99 u/l (38-126); ANION GAP 14 (6-22 (CALC)); BILIRUBIN, TOTAL 0.8 mg/dL (0.2-1.3); BUN 12 mg/dL (8-23); BUN/CREATININE RATIO 11 (12-20 (CALC)); CARBON DIOXIDE 25 mmol/l (22-30); CHLORIDE 99 mmol/l (95-108); CREATININE 1.1 mg/dL (0.7-1.3); ESTIMATED GFR 70 ML/MIN (>=90 (CALC)); POTASSIUM 3.5 mmol/l (3.5-5.1); SGOT/AST 26 u/l (19-48); SODIUM 134 mmol/l (137-146); TOTAL PROTEIN 7.7 g/dL (6.3-8.2)
[2024-03-22] MEDS ORDERED: HYZAAR1 TA1 PO (20:46)
[2024-03-22] MEDS ORDERED: FUROSEMIDE 20 MG/TAB PO ONE (20:50)
== END 2024-03-22 21:22 | disposition home or self-care (01) ==
LOC: ED 18:06
PROVIDERS: Nurse Practitioner
DX: I10 Essential (primary) hypertension (principal); E78.5 Hyperlipidemia, unspecified; Z95.0 Presence of cardiac pacemaker

== ENCOUNTER 2024-03-23 14:47 | Emergency (ER) | payer MEDICARE ==
[~2024-03-23] VITALS: Ht 167.6 cm; Wt 72.0 kg
[~2024-03-23 14:47] MED LIST changes: +HYZAAR1 TA1 PO
[2024-03-23 16:40] VITALS: BP 144/101
[2024-03-23 16:45] VITALS: BP 140/87
[2024-03-23 17:00] VITALS: BP 139/96
[2024-03-23 17:15] VITALS: BP 135/94
[2024-03-23 17:30] VITALS: BP 134/85
[2024-03-23 17:37] VITALS: BP 134/85
== END 2024-03-23 17:40 | disposition home or self-care (01) ==
LOC: ED 14:47
DX: I10 Essential (primary) hypertension (principal); E78.5 Hyperlipidemia, unspecified

== ENCOUNTER 2024-03-25 15:20 | Observation (INO) | payer MEDICARE ==
[~2024-03-25] VITALS: Ht 165.1 cm; Wt 64.2 kg
[2024-03-25 15:41] VITALS: BP 126/79
[2024-03-25 16:29] LABS: BASO% 0.2 % (0-3); EOS% 0.6 % (0-8); HEMATOCRIT 45.5 % (39.0-50.0); HEMOGLOBIN 15.1 g/dl (14.0-18.0); IMMATURE GRANULOCYTES 0.3 % (0.0-5.0); LYMPH% 7.9 % (15-41); MEAN CELL VOLUME 96.2 fL CALC (80.0-100.0); MEAN CORPUSCULAR HGB 31.9 pG CALC (26.0-32.0); MEAN CORPUSCULAR HGB CONC 33.2 g/dL CAL (32.0-36.0); MONO% 8.4 % (2-13); NEUT# 7.69 thou/uL (1.82-7.42); NEUT% 82.6 % (42-76); RED BLOOD COUNT 4.73 mill/uL (4.70-6.10); RED CELL DISTRI WIDTH 12.7 % (11.5-15.5)
[2024-03-25] MEDS ORDERED: ALPRAZolam 0.5 MG/TAB PO PRN (16:30)
[2024-03-25] MEDS ORDERED: ALUM & MAG HYDROX-SIMETHICONE 30 ML PO PRN (16:30)
[2024-03-25] MEDS ORDERED: LORazepam 0.5 MG/TAB PO PRN (16:30)
[2024-03-25] MEDS ORDERED: Polyethylene Glycol 3350 17 GM/PKT PO PRN (16:30)
[2024-03-25] MEDS ORDERED: SODIUM CHLORIDE 0.9% 10 ML SYR IV PRN (16:30)
[2024-03-25] MEDS ORDERED: SODIUM CHLORIDE 0.9% 1,000 ML IV PRN (16:30)
[2024-03-25] MEDS ORDERED: ACETAMINOPHEN 325 MG/TAB PO PRN (16:30)
[2024-03-25] MEDS ORDERED: oxyCODONE 10MG/APAP 325 MG 1 COMBO TAB PO PRN (16:35)
[2024-03-25 16:59] LABS: CREATININE 1.9 mg/dL (0.7-1.3)
[2024-03-25 17:01] LABS: POTASSIUM 4.3 mmol/l (3.5-5.1)
[2024-03-25 18:55] VITALS: BP 107/63
[2024-03-25] MEDS ORDERED: APIXABAN BASE 5 MG TAB PO SCH (21:00)
[2024-03-25] MEDS ORDERED: lamoTRIgine 100 MG/TAB PO SCH (21:00)
[2024-03-25 23:47] VITALS: BP 114/66
[2024-03-26] VITALS (11 sets, daily range): BP systolic 99–137; BP diastolic 59–83
[2024-03-26 05:28] LABS: BASO% 0.5 % (0-3); BILIRUBIN, TOTAL 1.1 mg/dL (0.2-1.3); CREATININE 1.5 mg/dL (0.7-1.3); EOS% 2.1 % (0-8); HEMATOCRIT 40.1 % (39.0-50.0); HEMOGLOBIN 13.6 g/dl (14.0-18.0); IMMATURE GRANULOCYTES 0.3 % (0.0-5.0); LYMPH% 22.7 % (15-41); MEAN CELL VOLUME 96.4 fL CALC (80.0-100.0); MEAN CORPUSCULAR HGB 32.7 pG CALC (26.0-32.0); MEAN CORPUSCULAR HGB CONC 33.9 g/dL CAL (32.0-36.0); MONO% 8.4 % (2-13); NEUT# 4.16 thou/uL (1.82-7.42); POTASSIUM 3.7 mmol/l (3.5-5.1); RED BLOOD COUNT 4.16 mill/uL (4.70-6.10); RED CELL DISTRI WIDTH 12.9 % (11.5-15.5); TOTAL PROTEIN 6.3 g/dL (6.3-8.2)
[2024-03-26 05:29] LABS: ALBUMIN 3.6 g/dL (3.2-5.0); MAGNESIUM 2.2 mg/dL (1.6-2.3)
[2024-03-26] MEDS ORDERED: TAMSULOSIN HCL 0.4 MG CAP PO SCH (08:00)
[2024-03-26] MEDS ORDERED: PATIENT' OWN MED 1 EA DOSE PO SCH ×2 (09:00)
[2024-03-26] MEDS ORDERED: METOPROLOL SUCCINATE 50 MG/TAB PO SCH (09:00)
[2024-03-26] MEDS ORDERED: COZAAR25 MG PO (15:38)
[2024-03-27 00:09] VITALS: BP 135/67
[2024-03-27 03:55] VITALS: BP 155/90
[2024-03-27 05:50] LABS: BASO% 0.3 % (0-3); EOS% 2.9 % (0-8); HEMATOCRIT 37.8 % (39.0-50.0); HEMOGLOBIN 12.9 g/dl (14.0-18.0); IMMATURE GRANULOCYTES 0.3 % (0.0-5.0); LYMPH% 15.7 % (15-41); MEAN CELL VOLUME 96.7 fL CALC (80.0-100.0); MEAN CORPUSCULAR HGB CONC 34.1 g/dL CAL (32.0-36.0); MONO% 8.7 % (2-13); NEUT# 4.53 thou/uL (1.82-7.42); NEUT% 72.1 % (42-76); RED BLOOD COUNT 3.91 mill/uL (4.70-6.10); RED CELL DISTRI WIDTH 12.9 % (11.5-15.5)
[2024-03-27 06:06] LABS: ALBUMIN 3.2 g/dL (3.2-5.0); BILIRUBIN, TOTAL 0.9 mg/dL (0.2-1.3); CREATININE 1.2 mg/dL (0.7-1.3); MAGNESIUM 1.9 mg/dL (1.6-2.3); POTASSIUM 3.5 mmol/l (3.5-5.1); TOTAL PROTEIN 5.8 g/dL (6.3-8.2)
[2024-03-27 06:53] VITALS: BP 168/92
[2024-03-27 09:30] VITALS: BP 132/79; BP 135/83; BP 135/87
[2024-03-27 11:47] VITALS: BP 141/86
== END 2024-03-27 13:44 | disposition home or self-care (01) ==
LOC: MS2 15:20
PROVIDERS: Nurse Practitioner Family; ADMIT Internal Medicine; ATTEND Internal Medicine
DX: I95.2 Hypotension due to drugs (principal); T46.5X5A Adverse effect of other antihypertensive drugs, initial encounter; N17.9 Acute kidney failure, unspecified; I10 Essential (primary) hypertension; I48.91 Unspecified atrial fibrillation; K21.9 Gastro-esophageal reflux disease without esophagitis; G89.29 Other chronic pain; F41.9 Anxiety disorder, unspecified; F32.A Depression, unspecified; E78.5 Hyperlipidemia, unspecified; Z95.0 Presence of cardiac pacemaker
CPT/HCPCS: G0379